=== PATIENT | male | born 1985 | race Caucasian/White ===

== ENCOUNTER 2016-10-22 12:11 | Emergency (ER) | payer OTHER ==
[2016-10-22 12:19] VITALS: BP 124/86; PULSE 60; TEMP 98; BMI 26.4
--- NOTE | 2016-10-22 12:27 | PDOC ---
Attending Attestation - Resident Resident Name: Martita Goodwin - ED Attending Attestation I have performed the following: I have examined & evaluated the patient, The case was reviewed & discussed with the resident, I agree w/resident's findings & plan, Exceptions are as noted - HPI HPI: 10/22/16 13:52 31y M hx of CP, developmnental delay, cateracts, glaucoma presents s/p witnessed fall this AM. Pt was walking around 6am and had a witnessed mechanical fall on his forehead and R knee. There was no reported LOC. Since the injury, the pt has been acting his usual self, he ate breakfast/lunch without a problem, theree was no vomiting nor change in his behavior. He presented originially to the urgent care but was referred to the ED for a head CT. - Physicial Exam PE: 10/22/16 14:07 GENERAL: The patient is awake, alert HEAD: Normocephalic, atraumatic without any focal bony [id number], erythema, stepoffs, bruising. neg battles sign, racoon eyes, TM without hemotympanum b/l. EYES: extraocular movements intact, sclera anicteric, conjunctiva clear.Aniscoric pupil on R eye (s/p cateract surgery), L pupil is 3mm and reactive to light NECK: Normal range of motion, supple, no focal bony tenderness on midline cervical/thoracic/lumbar spine LUNGS: Breath sounds equal, clear to auscultation bilaterally. No wheezes, no rhonchi, no rales. HEART: Regular rate and rhythm, normal S1 and Sop. ABDOMEN: Soft, nontender, normoactive bowel sounds. No guarding, no rebound. EXTREMITIES: Normal range of motion passively and activly of lower and upper extermities. Mild ertyeham with superficial skin scrap on R anterior knee NEUROLOGICAL:awake/alert, moving all 4 extremities spontaneously and symemtrically SKIN: Warm, Dry, normal turgor, - Medical Decision Making 10/22/16 14:09 As pt is approximately 8 hrs after injury and is at bsaeline status, without any vomiting will defer CT head as fall from standing to forehead is low risk otherwise. Discussed with care providers that if pts mental status changes at all, he is crying or otherwise not himself or vomiting he should return immediately for further evaluation.
--- NOTE | 2016-10-22 13:54 | PDOC ---
History of Present Illness <River Simms - Last Filed: 10/22/16 14:03> - General History Source: Care Provider - History of Present Illness Initial Comments: 31 year old male with cerebral palsy and seizure disorder presenting asymptomatic after a mechanical fall with head trauma 6 hours ago. Patient was walking at 6:00 AM on the morning of presentation with long pajamas and he tripped over them falling forward and bumping the front right portion of his head. His caregiver denied LOC, nausea, vomiting, unstable gait, lethargy, any complaints of pain, or change in routine. The patient is non-verbal at baseline but there was no abnormal behavior, the staff was simply concerned because of the fall itself. There was not bruising, bleeding, swelling, or concern for pain over the area of trauma. 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 He has been taking his seizure medications as prescribed and has not missed any doses. 10/22/16 14:12 <Martita Goodwin - Last Filed: 10/22/16 14:45> - General Chief Complaint: Injury Stated Complaint: slip and fall Time Seen by Provider: 10/22/16 12:15 Past History <River Simms - Last Filed: 10/22/16 14:03> - Past Medical History Seizures: Yes Other medical history: cataracts, glacoma, cerebral palsy, developmental delay - Psycho/Social/Smoking Cessation Hx Suicidal Ideation: No (unable to obtain) Smoking History: Never smoked Hx Alcohol Use: No Drug/Substance Use Hx: No Substance Use Type: None <Martita Goodwin - Last Filed: 10/22/16 14:45> - Past Medical History Allergies/Adverse Reactions: Allergies Allergy/AdvReac Type Severity Reaction Status Date / Time Sulfa (Sulfonamide Allergy Verified 10/22/16 12:24 Antibiotics) Home Medications: Ambulatory Orders Betaxolol HCl 0.25% [Betoptic S 0.25%] 1 drop OS BID 10/22/16 Carbamazepine [Tegretol -] 200 mg PO BID 10/22/16 Docusate Sodium [Colace -] 100 mg PO DAILY 10/22/16 Review of Systems - Review of Systems Able to Perform ROS?: No (Mentally Delayed) <Martita Goodwin - Last Filed: 10/22/16 14:45> *Physical Exam - Vital Signs Last Vital Signs Temp Pulse Resp BP Pulse Ox 98.0 F 60 16 124/86 99 10/22/16 12:12 10/22/16 12:12 10/22/16 12:12 10/22/16 12:12 10/22/16 12:12 <River Simms - Last Filed: 10/22/16 14:03> - Vital Signs Last Vital Signs Temp Pulse Resp BP Pulse Ox 98.0 F 60 16 124/86 99 10/22/16 12:12 10/22/16 12:12 10/22/16 12:12 10/22/16 12:12 10/22/16 12:12 - Physical Exam Comments: 10/22/16 14:32 Limited physical exam due to mental delay and subsequent non-compliance. General Appearance: Yes: Nourished, Appropriately Dressed. No: Apparent Distress HEENT: positive: EOMI, ZION, Normal ENT Inspection, TMs Normal Neck: positive: Trachea midline, Normal Thyroid, Supple. negative: Tender, Rigid Respiratory/Chest: positive: Lungs Clear, Normal Breath Sounds. negative: Chest Tender, Respiratory Distress, Accessory Muscle Use Cardiovascular: positive: Regular Rhythm, Regular Rate Gastrointestinal/Abdominal: positive: Normal Bowel Sounds, Flat, Soft. negative : Tender Neurologic: positive: Alert. negative: Fully Oriented <Martita Goodwin - Last Filed: 10/22/16 14:45> Medical Decision Making - Medical Decision Making 31 year old male with PMH of CP and seizure disorder presenting asymptomatic after a mechanical trip and fall with head trauma. No need to image his head because there is no concern for high mechanism of head trauma. No hemorrhage, swelling, or pain at the site of trauma and the patient is not motioning toward the area or wincing when the area is palpated. His behavior has been normal and the caregivers deny nausea, vomiting, or gait abnormality. The patient was monitored for one hour without decline in MS or change in behavior. Return precautions were given to the caregivers and he was discharged in stable condition. 10/22/16 14:32 <Martita Goodwin - Last Filed: 10/22/16 14:45> *DC/Admit/Observation/Transfer - Discharge Dispostion Admit: No <River Simms - Last Filed: 10/22/16 14:03> - Discharge Dispostion Admit: No - Attestations Physician Attestion: 10/22/16 14:45 I, Dr. Martita Goodwin, attest that this document has been prepared under my direction and personally reviewed by me in its entirety. I further attest, that it accurately reflects all work, treatment, procedures and medical decision -making performed by me. <Martita Goodwin - Last Filed: 10/22/16 14:45> Diagnosis at time of Disposition: Head injury Qualifiers: Encounter type: initial encounter Qualified Code(s): S09.90XA - Unspecified injury of head, initial encounter - Discharge Dispostion Disposition: HOME Condition at time of disposition: Stable - Patient Instructions Printed Discharge Instructions: DI for Closed Head Injury Additional Instructions: Please keep an eye on Chun If Chun appears to be in pain, is vomiting or nauseus, or otherwise is not cting like his usual self, return to the emergency department for further evaluation. Print Language: GREEK
== END 2016-10-22 14:12 | disposition home or self-care (01) ==
LOC: FER 12:11
DX: S09.90XA Unspecified injury of head, initial encounter (principal); W18.09XA Striking against other object with subsequent fall, initial encounter; Y93.89 Activity, other specified; Y92.009 Unspecified place in unspecified non-institutional (private) residence as the place of occurrence of the external cause; G80.9 Cerebral palsy, unspecified; G40.909 Epilepsy, unspecified, not intractable, without status epilepticus
CPT/HCPCS: 99281-25

== ENCOUNTER 2017-06-06 10:45 | Emergency (ER) | payer BC, OTHER ==
--- NOTE | 2017-06-06 10:54 | PDOC ---
History of Present Illness - General Chief Complaint: Respiratory Stated Complaint: COUGH & COLD SX Time Seen by Provider: 06/06/17 10:47 - History of Present Illness Initial Comments: 06/06/17 10:53 32 M with CP presenting with 1 day of fever, cough, runny nose. Pt's aide states that he started having fevers last night, Tmax 101.4. Pt has been sneezing. Aides state that several other residents at his home have tested positive for flu and strep. Past History - Past Medical History Allergies/Adverse Reactions: Allergies Allergy/AdvReac Type Severity Reaction Status Date / Time Sulfa (Sulfonamide Allergy Verified 06/06/17 10:46 Antibiotics) Home Medications: Ambulatory Orders Acetaminophen [Tylenol] 650 mg PO Q6H PRN 06/06/17 Betaxolol HCl 0.25% [Betoptic S 0.25%] 1 drop OS BID 06/06/17 Carbamazepine [Carbamazepine ER] 200 mg PO BID 06/06/17 Cholecalciferol (Vitamin D3) [Vitamin D3] 1,000 unit PO DAILY 06/06/17 Clotrimazole/Betamet Diprop [Lotrisone Cream (Large Tube) -] 1 applic TP BID Cranberry Fruit Extract [Cranberry] 250 mg PO DAILY 06/06/17 Docusate Sodium [Colace] 100 mg PO HS 06/06/17 Erythromycin Base/Ethanol [Erythromycin 2% Gel] 1 applic TP HS 06/06/17 Oseltamivir Phosphate [Tamiflu Oral Suspension -] 75 mg PO BID 10 Days #500 ml 06/06/17 Zinc Oxide [Desitin] 1 applic TP QID 06/06/17 Seizures: Yes - Suicide/Smoking/Psychosocial Hx Smoking History: Never smoked Hx Alcohol Use: No Drug/Substance Use Hx: No Substance Use Type: None Review of Systems - Review of Systems Able to Perform ROS?: No *Physical Exam - Physical Exam Comments: 06/06/17 12:34 "GENERAL: Awake, alert, in no acute distress HEAD: No signs of trauma EYES: PERRLA, EOMI, sclera anicteric, conjunctiva clear ENT: Auricles normal inspection, hearing grossly normal, nares patent, oropharynx clear without exudates. Moist mucosa NECK: Nontender, no stepoffs, Normal ROM, supple, no lymphadenopathy, JVD, or masses LUNGS: Breath sounds equal, clear to auscultation bilaterally. No wheezes, and no crackles HEART: Regular rate and rhythm, normal S1 and S2, no murmurs, rubs or gallops ABDOMEN: Soft, nontender, normoactive bowel sounds. No guarding, no rebound. No masses EXTREMITIES: Normal range of motion, no edema. No clubbing or cyanosis. No cords, erythema, or tenderness NEUROLOGICAL: Cranial nerves II through XII intact. 5/5 strength and sensation in all extremities, Normal speech, normal gait, normal cerebellar function SKIN: Warm, Dry, normal turgor, no rashes or lesions noted. " Medical Decision Making - Medical Decision Making 06/06/17 12:34 32 M with fever x 1 day. Multiple contacts with flu and strep at alf. Vitals stable, lungs clear. - CXR - Flu swab - Rapid strep 06/06/17 12:37 CXR clear without infiltrate Rapid strep negative Flu swab + for influenza B Pt started on tamiflu Pt is well appearing, with normal vitals. Clinically stable for DC at this time. I discussed the physical exam findings, ancillary test results and final diagnoses with the patient. I answered all of the patient's questions. The patient was satisfied with the care received and felt comfortable with the discharge plan and treatment plan. The patient agrees to follow up with the primary care physician within 24-72 hours. *DC/Admit/Observation/Transfer Diagnosis at time of Disposition: Influenza B - Discharge Dispostion Disposition: HOME Condition at time of disposition: Stable - Prescriptions Prescriptions: Oseltamivir Phosphate [Tamiflu Oral Suspension -] 75 mg PO BID 10 Days #500 ml - Referrals - Patient Instructions Printed Discharge Instructions: DI for Influenza -- Adult Additional Instructions: You have the flu. Take the tamiflu as prescribed to shorten the duration of your symptoms. If you experience worsening fevers, chest pain, shortness of breath, or any other concerning symptoms, return to the ER immediately. Otherwise, follow up with your primary doctor within 1 week. - Post Discharge Activity - Attestations Physician Attestion: 06/06/17 12:36 I, Dr. Octavio Motta MD, attest that this document has been prepared under my direction and personally reviewed by me in its entirety. I further attest, that it accurately reflects all work, treatment, procedures and medical decision -making performed by me.
[2017-06-06 11:00] VITALS: BP 112/73; PULSE 79; TEMP 99
[2017-06-06] MEDS: ACETAMINOPHEN 650 MG/20.3 ML ORAL SOLUTION (CUPS) PO ONE ×2 (11:00→11:34)
[2017-06-06] MEDS ORDERED: ACETAMINOPHEN 650 MG/20.3 ML ORAL SOLUTION (CUPS) ONE (11:03)
[2017-06-06] MEDS ORDERED: OSELTAMIVIR PHOSPHATE 6 MG/1 ML PO ONE (12:31)
[2017-06-06] MEDS ORDERED: OSELTAMIVIR PHOSPHATE 75 MG CAPSULE ONE (12:43)
[2017-06-06] MEDS ORDERED: OSELTAMIVIR PHOSPHATE 75 MG CAPSULE PO ONE (12:48)
== END 2017-06-06 12:56 | disposition home or self-care (01) ==
LOC: FER 10:45
DX: J10.1 Influenza due to other identified influenza virus with other respiratory manifestations (principal); Z88.2 Allergy status to sulfonamides
CPT/HCPCS: 71046-TC-FY; 87070; 87430; 87804; 99282-25; G9019

== ENCOUNTER 2017-08-04 19:31 | Emergency (ER) | payer BC, OTHER ==
[2017-08-04 19:38] VITALS: BP 121/72; PULSE 100; TEMP 98.4; BMI 25.0
--- NOTE | 2017-08-04 21:37 | PDOC ---
History of Present Illness - General History Source: Patient Exam Limitations: Other (nonverbal) - History of Present Illness Initial Comments: 08/04/17 21:50 The patient is a 32 year old male with past medical history of cerebral palsy, cognitive deficits, cataracts, blindness who arrives to the ED from a [facility] for evaluation of fever. The patients aide states that on Friday the patient was thought to have a fever and has been persistent since, noted to be in the 100s. The aide denies any cough, shortness of breath, foul smelling urine, hematuria, nausea, vomiting, or diarrhea. Allergies: Sulfa <Isis Singh - Last Filed: 08/04/17 23:56> <Tomasa Ochoa - Last Filed: 08/05/17 01:12> - General Chief Complaint: Urinary Problem Stated Complaint: URINARY PROBLEM Time Seen by Provider: 08/04/17 21:22 Past History <Isis Singh - Last Filed: 08/04/17 23:56> - Past Medical History COPD: No Seizures: Yes - Suicide/Smoking/Psychosocial Hx Smoking History: Never smoked Have you smoked in the past 12 months: No Information on smoking cessation initiated: No Hx Alcohol Use: No Drug/Substance Use Hx: No Substance Use Type: None <Tomasa Ochoa - Last Filed: 08/05/17 01:12> - Past Medical History Allergies/Adverse Reactions: Allergies Allergy/AdvReac Type Severity Reaction Status Date / Time Sulfa (Sulfonamide Allergy Verified 08/04/17 19:38 Antibiotics) Home Medications: Ambulatory Orders Acetaminophen [Tylenol] 650 mg PO Q6H PRN 06/06/17 Betaxolol HCl 0.25% [Betoptic S 0.25%] 1 drop OS BID 06/06/17 Carbamazepine [Carbamazepine ER] 200 mg PO BID 06/06/17 Cholecalciferol (Vitamin D3) [Vitamin D3] 1,000 unit PO DAILY 06/06/17 Clotrimazole/Betamet Diprop [Lotrisone Cream (Large Tube) -] 1 applic TP BID Cranberry Fruit Extract [Cranberry] 250 mg PO DAILY 06/06/17 Docusate Sodium [Colace] 100 mg PO HS 06/06/17 Erythromycin Base/Ethanol [Erythromycin 2% Gel] 1 applic TP HS 06/06/17 Oseltamivir Phosphate [Tamiflu -] 75 mg PO BID #20 capsule 06/06/17 Oseltamivir Phosphate [Tamiflu Oral Suspension -] 75 mg PO BID 10 Days #500 ml 06/06/17 Zinc Oxide [Desitin] 1 applic TP QID 06/06/17 levoFLOXacin [Levaquin -] 500 mg PO DAILY #7 tablet 08/05/17 Review of Systems - Review of Systems Able to Perform ROS?: No (nonverbal ) <Isis Singh - Last Filed: 08/04/17 23:56> *Physical Exam - Vital Signs Last Vital Signs Temp Pulse Resp BP Pulse Ox 98.4 F 100 H 16 121/72 100 08/04/17 19:36 08/04/17 19:36 08/04/17 19:36 08/04/17 19:36 08/04/17 19:36 - Physical Exam Comments: 08/04/17 21:51 GENERAL: Well developed, well nourished. Awake. Able to follow commands. Understands simple directions. Wheelchair bound. No acute distress. HEENT: Normocephalic, atraumatic. PERRLA, EOMI. No conjunctival pallor. Sclera are non- icteric. Moist mucous membranes. Oropharynx is clear. NECK: Supple. Full ROM. No JVD. Carotid pulses 2+ and symmetric, without bruits. No thyromegaly. No lymphadenopathy. CARDIOVASCULAR: Regular rate and rhythm. No murmurs, rubs, or gallops. Distal pulses are 2+ and symmetric. PULMONARY: No evidence of respiratory distress. Lungs clear to auscultation bilaterally. No wheezing, rales or rhonchi. ABDOMINAL: Soft. Non-tender. Non-distended. No rebound or guarding. No organomegaly. Normoactive bowel sounds. MUSCULOSKELETAL Normal range of motion at all joints. No bony deformities or tenderness. No CVA tenderness. EXTREMITIES: No cyanosis. No clubbing. No edema. No calf tenderness. SKIN: Warm and dry. Normal capillary refill. No rashes. No jaundice. NEUROLOGICAL: Alert, awake, appropriate. Cranial nerves 2-12 intact. No motor deficits in the in face, upper extremities and lower extremities. PSYCHIATRIC: Cooperative. Good eye contact. Appropriate mood and affect. <Isis Singh - Last Filed: 08/04/17 23:56> - Vital Signs Last Vital Signs Temp Pulse Resp BP Pulse Ox 98.4 F 100 H 16 121/72 100 08/04/17 19:36 08/04/17 19:36 08/04/17 19:36 08/04/17 19:36 08/04/17 19:36 <Tomasa Ochoa - Last Filed: 08/05/17 01:12> ED Treatment Course - LABORATORY CBC & Chemistry Diagram: 08/04/17 23:30 08/04/17 23:30 <Isis Singh - Last Filed: 08/04/17 23:56> - LABORATORY CBC & Chemistry Diagram: 08/04/17 23:30 08/04/17 23:30 <Tomasa Ochoa - Last Filed: 08/05/17 01:12> Medical Decision Making - Medical Decision Making 08/04/17 23:57 Phone call placed to Anita Victoria RN , one of the care takers of Chun Goodman at the [facility]. It was discussed that patient has a UTI and will be discharged with antibiotics sent to [facility] pharmacy. <Isis Singh - Last Filed: 08/04/17 23:56> - Medical Decision Making 08/04/17 23:59 Patient's rectal temp was 100.5. Patient CBC is within normal limits with a white count of 7.4 and there is no shift with a normal differential. UA shows large # WBCs , Culture was sent Plan I will give her 1 dose of Levaquin and then a prescription will be sent to [facility] <Tomasa Ochoa - Last Filed: 08/05/17 01:12> *DC/Admit/Observation/Transfer - Attestations Scribe Attestion: 08/04/17 21:53 Documentation prepared by Isis Singh, acting as registered medical assistant for Tomasa Ochoa MD. <Isis Singh - Last Filed: 08/04/17 23:56> <Tomasa Ochoa - Last Filed: 08/05/17 01:12> Diagnosis at time of Disposition: Urinary tract infection Qualifiers: Urinary tract infection type: site unspecified Hematuria presence: without hematuria Qualified Code(s): N39.0 - Urinary tract infection, site not specified - Discharge Dispostion Disposition: HOME Condition at time of disposition: Stable - Prescriptions Prescriptions: levoFLOXacin [Levaquin -] 500 mg PO DAILY #7 tablet - Patient Instructions Printed Discharge Instructions: DI for Urinary Tract Infection (UTI) Additional Instructions: please take the antibiotics daily for your urinary tract infection follow up with your physician return for any worsening symptoms
[2017-08-04 23:41] LABS: BASO % 0.5 % (0-2.0); EOS % 0.7 % (0-4.5); HEMATOCRIT 46.3 % (35.4-49); HEMOGLOBIN 15.4 GM/dL (11.7-16.9); LYMPH % 12.4 % (8-40); MCH 30.7 pg (25.7-33.7); MCHC 33.2 g/dl (32.0-35.9); MEAN CELL VOLUME 92.5 fl (80-96); MEAN PLT VOLUME 8.7 fl (7.5-11.1); MONO % 15.2 % (3.8-10.2); NEUT % 71.2 % (42.8-82.8); PLATELET COUNT 153 K/MM3 (134-434); RDW 13.1 % (11.9-15.9); WHITE BLOOD COUNT 7.4 K/mm3 (4.0-10.0)
[2017-08-04 23:45] LABS: URINE APPEARANCE CLOUDY; URINE BILIRUBIN NEGATIVE (<2.0 mg/dL); URINE COLOR YELLOW; URINE GLUCOSE (UA) NEGATIVE (NEGATIVE); URINE KETONE NEGATIVE (NEGATIVE); URINE LEUK ESTERASE 3+ (NEGATIVE); URINE NITRITE NEGATIVE (NEGATIVE); URINE PROTEIN NEGATIVE (NEGATIVE); URINE UROBILINOGEN NEGATIVE mg/dL (0.2-1.0)
[2017-08-04 23:48] LABS: URINE BACTERIA RARE /hpf (NONE SEEN); URINE HYALINE CAST 2 /lpf; URINE MUCUS RARE
[2017-08-05 00:05] LABS: ALBUMIN 3.1 g/dl (3.4-5.0); ALK PHOS 110 U/L (45-117); ANION GAP 8 (8-16); BILIRUBIN,TOTAL 0.3 mg/dL (0.2-1.0); BLOOD UREA NITROGEN 15 mg/dL (7-18); CALCIUM 8.7 mg/dL (8.5-10.1); CHLORIDE 101 mmol/L (98-107); CO2 31 mmol/L (21-32); CREATININE 0.9 mg/dL (0.7-1.3); GLUCOSE,RANDOM 92 mg/dL (74-106); POTASSIUM 3.8 mmol/L (3.5-5.1); SGOT/AST 48 U/L (15-37); SGPT/ALT 56 U/L (12-78); SODIUM 140 mmol/L (136-145); TOT PROT 6.6 g/dl (6.4-8.2)
[2017-08-05] MEDS ORDERED: ACETAMINOPHEN 325 MG TABLET (FP) ONE (00:17)
[2017-08-05] MEDS ORDERED: ACETAMINOPHEN 325 MG TABLET (FP) PO ONE (00:20)
--- NOTE | 2017-08-07 08:47 | PDOC ---
Patient Follow-up (Call Back) - Post ED Follow - Up Condition at time of discharge: Stable Disposition at time of original discharge: HOME Reason for Call Back: Abnwl. Microbiology (urine culture preliminary shows lactose fermenting GNB. Patient on Levaquin. Will await final report.)
== END 2017-08-05 01:25 | disposition home or self-care (01) ==
LOC: JER 19:31
DX: N39.0 Urinary tract infection, site not specified (principal); G80.9 Cerebral palsy, unspecified; R41.89 Other symptoms and signs involving cognitive functions and awareness; H54.7 Unspecified visual loss
CPT/HCPCS: 36415; 80053; 81003; 81015; 85025; 87086; 87186; 99281-25

== ENCOUNTER 2021-05-31 20:38 | Inpatient (IN) | payer BC, OTHER ==
[2021-05-31 21:02] VITALS: BMI 25.4
[2021-05-31] MEDS ORDERED: SODIUM CHLORIDE 1,891 ML IV ONE (21:44)
[2021-05-31 22:39] LABS: VENOUS BASE EXCESS -0.6 mmol/L (-2-2); VENOUS O2 SATURATION 54.2 % (70-80); VENOUS PCO2 46.6 mmHg (38-52); VENOUS PH 7.355 (7.310-7.410)
[2021-05-31 22:40] LABS: HEMATOCRIT 48.7 % (35.4-49); HEMOGLOBIN 16.6 GM/dL (11.7-16.9); MCH 31.4 pg (25.7-33.7); MCHC 34.1 g/dl (32.0-35.9); MEAN CELL VOLUME 92.1 fl (80-96); MEAN PLT VOLUME 7.8 fl (7.5-11.1); PLATELET COUNT 169 10^3/uL (134-434); RBC 5.29 M/mm3 (4.00-5.60); RDW 12.8 % (11.9-15.9)
[2021-05-31 22:46] LABS: EPI CELLS 10 /uL (0-25.1); HYALINE CASTS 1 /uL (0-3.1); URINE APPEARANCE CLOUDY; URINE BACTERIA >9,000 /uL (0-1359); URINE BILIRUBIN NEGATIVE (NEGATIVE); URINE COLOR YELLOW; URINE GLUCOSE (UA) TRACE (NEGATIVE); URINE KETONE NEGATIVE (NEGATIVE); URINE LEUK ESTERASE 3+ (NEGATIVE); URINE NITRITE NEGATIVE (NEGATIVE); URINE PROTEIN NEGATIVE (NEGATIVE); URINE RBC 37 /uL (0-23.9); URINE WBC 1778 /uL (0-25.8)
[2021-05-31 22:48] LABS: INR 1.12 (0.83-1.09); PROTHROMBIN TIME (PATIENT) 12.9 SEC (9.7-13.0)
[2021-05-31 22:51] LABS: ACTIVATED PTT 28.2 SECONDS (25.2-36.5)
[2021-05-31 23:01] LABS: CHLORIDE 105 mmol/L (98-107); SODIUM 139 mmol/L (136-145)
[2021-05-31 23:04] LABS: ALBUMIN 3.6 g/dl (3.4-5.0); ANION GAP 7 MMOL/L (8-16); CO2 27 mmol/L (21-32); GLUCOSE,RANDOM 101 mg/dL (74-106)
[2021-05-31 23:07] LABS: CREATININE 0.9 mg/dL (0.55-1.3); SGOT/AST 40 U/L (15-37); SGPT/ALT 44 U/L (13-61)
[2021-05-31 23:08] LABS: TOT PROT 6.8 g/dl (6.4-8.2)
[2021-05-31 23:09] LABS: BILIRUBIN,TOTAL 0.6 mg/dL (0.2-1)
[2021-05-31 23:10] LABS: ALK PHOS 113 U/L (45-117)
[2021-05-31 23:28] LABS: ANISOCYTOSIS 0; MACROCYTOSIS 0
[2021-05-31] MEDS ORDERED: CEFTRIAXONE 1,000 MG in DEXTROSE 5%-WATER - 50 ML IVPB ONE (23:50)
[2021-05-31] MEDS ORDERED: ACETAMINOPHEN 1000 MG/100 ML BAG IVPB ONE (23:50)
[2021-06-01] MEDS ORDERED: ACETAMINOPHEN INJECTION 100 ML IVPB ONE (00:22)
[2021-06-01] MEDS ORDERED: CEFTRIAXONE 1 GM/50 ML BAG ONE (00:23)
[2021-06-01] MEDS ORDERED: PIPERACILLIN/TAZOB 2.25 GM 2.25 GM in DEXTROSE 5%-WATER - 50 ML IVPB SCH (04:00)
[2021-06-01] MEDS ORDERED: PIPERACILLIN/TAZOB 3.375 GM 3.375 GM in DEXTROSE 5%-WATER - 50 ML IVPB SCH ×3 (04:00→10:00)
[2021-06-01] MEDS ORDERED: PIPERACILLIN/TAZOB 3.375 GM 3.375 GM/50 ML BAG IVPB ONE (06:01)
[2021-06-01 06:22] LABS: CALCIUM 8.6 mg/dL (8.5-10.1)
[2021-06-01 06:23] LABS: ALBUMIN 3.2 g/dl (3.4-5.0); BLOOD UREA NITROGEN 9.8 mg/dL (7-18); MAGNESIUM 1.8 mg/dL (1.8-2.4)
[2021-06-01 06:26] LABS: CREATININE 0.9 mg/dL (0.55-1.3); PHOSPHOROUS 3.2 mg/dL (2.5-4.9)
[2021-06-01 06:27] LABS: BILIRUBIN,TOTAL 0.8 mg/dL (0.2-1)
[2021-06-01 06:28] LABS: BASO % 0.2 % (0-2.0); HEMATOCRIT 47.4 % (35.4-49); HEMOGLOBIN 16.1 GM/dL (11.7-16.9); MCH 31.3 pg (25.7-33.7); MCHC 33.9 g/dl (32.0-35.9); MEAN CELL VOLUME 92.4 fl (80-96); MEAN PLT VOLUME 8.7 fl (7.5-11.1); MONO % 10.2 % (3.8-10.2); NEUT % 82.6 % (42.8-82.8); PLATELET COUNT 159 10^3/uL (134-434); RBC 5.14 M/mm3 (4.00-5.60); RDW 12.9 % (11.9-15.9); TOT PROT 6.1 g/dl (6.4-8.2); WHITE BLOOD COUNT 20.1 K/mm3 (4.0-10.0)
[2021-06-01] MEDS: SODIUM CHLORIDE 0.45% 1,000 ML IV SCH (06:37)
[2021-06-01] MEDS ORDERED: ENOXAPARIN NA (PORCINE) 40 MG/0.4 ML DISP.SYRIN SQ ONE (09:23)
[2021-06-01] MEDS: ENOXAPARIN NA (PORCINE) 40 MG/0.4 ML DISP.SYRIN SQ SCH (09:30)
[2021-06-01] MEDS ORDERED: PATIENT'S OWN MEDICATION (NON-FORMULARY) (Cranberry Fruit Extract [Cranberry] 250 MG Capsu PO SCH (10:30)
[2021-06-01] MEDS ORDERED: carBAMazepine 200 MG TABLET ONE (10:39)
[2021-06-01 10:44] LABS: ANISOCYTOSIS 2+; MACROCYTOSIS 0; TEAR DROP CELLS 2+
[2021-06-01] MEDS: carBAMazepine XR 200 MG TAB.ER.12H PO SCH ×2 (10:44→23:01)
[2021-06-01] MEDS ORDERED: cefTRIAXone SODIUM 1 GM VIAL ONE (11:21)
[2021-06-01] MEDS ORDERED: DEXTROSE 5%-WATER - 50 ML IVPB ONE ×2 (11:22→21:33)
[2021-06-01] MEDS ORDERED: CEFTRIAXONE 1 GM in DEXTROSE 5%-WATER - 50 ML IVPB SCH (12:00)
[2021-06-01] MEDS: BETAXOLOL HCL 0.25% OPHTHALMIC 10 ML DROPSBTL OS SCH ×4 (13:36→21:44)
[2021-06-01] MEDS: BACLOFEN 10 MG TABLET (FP) PO SCH ×2 (13:37→21:36)
[2021-06-01] MEDS ORDERED: ACETAMINOPHEN 1000 MG/100 ML BAG IVPB PRN (13:56)
[2021-06-01] MEDS ORDERED: PIPERACILLIN/TAZOBACTAM 3.375 GM VIAL IVPB ONE (21:32)
[2021-06-01] MEDS: PIPERACILLIN/TAZOB 3.375 GM 3.375 GM in DEXTROSE 5%-WATER - 50 ML IVPB SCH (21:36)
[2021-06-01] MEDS: DOCUSATE SODIUM 100 MG CAPSULE (FP) PO SCH (21:36)
[2021-06-02] MEDS ORDERED: PIPERACILLIN/TAZOBACTAM 3.375 GM VIAL IVPB ONE ×3 (03:09→16:53)
[2021-06-02] MEDS ORDERED: DEXTROSE 5%-WATER - 50 ML IVPB ONE ×3 (03:09→16:54)
[2021-06-02] MEDS: PIPERACILLIN/TAZOB 3.375 GM 3.375 GM in DEXTROSE 5%-WATER - 50 ML IVPB SCH ×3 (03:12→17:32)
[2021-06-02] MEDS: BACLOFEN 10 MG TABLET (FP) PO SCH ×3 (05:29→21:39)
[2021-06-02 07:44] LABS: BASO % 0.4 % (0-2.0); EOS % 0.5 % (0-4.5); HEMATOCRIT 44.4 % (35.4-49); HEMOGLOBIN 15.1 GM/dL (11.7-16.9); LYMPH % 7.9 % (8-40); MCH 31.6 pg (25.7-33.7); MCHC 33.9 g/dl (32.0-35.9); MEAN CELL VOLUME 93.1 fl (80-96); MEAN PLT VOLUME 8.1 fl (7.5-11.1); MONO % 12.9 % (3.8-10.2); NEUT % 78.3 % (42.8-82.8); PLATELET COUNT 156 10^3/uL (134-434); RBC 4.77 M/mm3 (4.00-5.60); RDW 13.2 % (11.9-15.9); WHITE BLOOD COUNT 15.3 K/mm3 (4.0-10.0)
[2021-06-02 07:59] LABS: CALCIUM 8.8 mg/dL (8.5-10.1)
[2021-06-02 08:00] LABS: BLOOD UREA NITROGEN 11.5 mg/dL (7-18)
[2021-06-02 08:03] LABS: CREATININE 0.9 mg/dL (0.55-1.3)
[2021-06-02] MEDS: ENOXAPARIN NA (PORCINE) 40 MG/0.4 ML DISP.SYRIN SQ SCH (10:57)
[2021-06-02] MEDS: carBAMazepine XR 200 MG TAB.ER.12H PO SCH ×2 (10:57→21:39)
[2021-06-02] MEDS: BETAXOLOL HCL 0.25% OPHTHALMIC 10 ML DROPSBTL OS SCH ×2 (10:58→21:42)
[2021-06-02] MEDS: SODIUM CHLORIDE 0.45% 1,000 ML IV SCH (11:28)
[2021-06-02] MEDS: ACETAMINOPHEN 1000 MG/100 ML BAG IVPB PRN (14:24)
[2021-06-02] MEDS: DOCUSATE SODIUM 100 MG CAPSULE (FP) PO SCH (21:39)
[2021-06-03] MEDS ORDERED: DEXTROSE 5%-WATER - 50 ML IVPB ONE ×2 (00:27→09:33)
[2021-06-03] MEDS ORDERED: cefTRIAXone SODIUM 1 GM VIAL ONE ×2 (00:27→09:32)
[2021-06-03] MEDS: CEFTRIAXONE 1 GM in DEXTROSE 5%-WATER - 50 ML IVPB SCH ×2 (00:30→09:49)
[2021-06-03] MEDS: BACLOFEN 10 MG TABLET (FP) PO SCH ×3 (05:39→21:45)
[2021-06-03 08:36] LABS: HEMATOCRIT 45.5 % (35.4-49); HEMOGLOBIN 15.2 GM/dL (11.7-16.9); MCH 31.2 pg (25.7-33.7); MCHC 33.4 g/dl (32.0-35.9); MEAN CELL VOLUME 93.5 fl (80-96); MEAN PLT VOLUME 8.6 fl (7.5-11.1); PLATELET COUNT 141 10^3/uL (134-434); RBC 4.87 M/mm3 (4.00-5.60); RDW 13.1 % (11.9-15.9); WHITE BLOOD COUNT 6.4 K/mm3 (4.0-10.0)
[2021-06-03 09:09] LABS: CALCIUM 8.3 mg/dL (8.5-10.1)
[2021-06-03 09:10] LABS: BLOOD UREA NITROGEN 11.6 mg/dL (7-18)
[2021-06-03 09:13] LABS: CREATININE 0.9 mg/dL (0.55-1.3)
[2021-06-03] MEDS: ENOXAPARIN NA (PORCINE) 40 MG/0.4 ML DISP.SYRIN SQ SCH (09:49)
[2021-06-03] MEDS: carBAMazepine XR 200 MG TAB.ER.12H PO SCH ×2 (09:58→21:47)
[2021-06-03] MEDS: BETAXOLOL HCL 0.25% OPHTHALMIC 10 ML DROPSBTL OS SCH ×2 (09:59→21:45)
[2021-06-03 10:48] LABS: ANISOCYTOSIS 0; MACROCYTOSIS 0
[2021-06-03] MEDS: ACETAMINOPHEN 1000 MG/100 ML BAG IVPB PRN (10:59)
[2021-06-03] MEDS: SODIUM CHLORIDE 0.45% 1,000 ML IV SCH (11:19)
[2021-06-03] MEDS: DOCUSATE SODIUM 100 MG CAPSULE (FP) PO SCH (21:45)
[2021-06-04] MEDS: BACLOFEN 10 MG TABLET (FP) PO SCH (05:20)
[2021-06-04 05:47] VITALS: BP 116/70; PULSE 81; TEMP 98.6
[2021-06-04 08:32] LABS: HEMATOCRIT 44.4 % (35.4-49); HEMOGLOBIN 15.2 GM/dL (11.7-16.9); MCH 31.5 pg (25.7-33.7); MCHC 34.2 g/dl (32.0-35.9); MEAN PLT VOLUME 8.2 fl (7.5-11.1); PLATELET COUNT 154 10^3/uL (134-434); RBC 4.82 M/mm3 (4.00-5.60); WHITE BLOOD COUNT 4.1 K/mm3 (4.0-10.0)
[2021-06-04 09:09] LABS: CALCIUM 8.4 mg/dL (8.5-10.1)
[2021-06-04 09:10] LABS: BLOOD UREA NITROGEN 11.9 mg/dL (7-18)
[2021-06-04] MEDS ORDERED: DEXTROSE 5%-WATER - 50 ML IVPB ONE (09:11)
[2021-06-04] MEDS ORDERED: cefTRIAXone SODIUM 1 GM VIAL ONE (09:11)
[2021-06-04 09:13] LABS: CREATININE 0.8 mg/dL (0.55-1.3)
[2021-06-04] MEDS: CEFTRIAXONE 1 GM in DEXTROSE 5%-WATER - 50 ML IVPB SCH (09:31)
[2021-06-04] MEDS: ENOXAPARIN NA (PORCINE) 40 MG/0.4 ML DISP.SYRIN SQ SCH (09:32)
[2021-06-04] MEDS: carBAMazepine XR 200 MG TAB.ER.12H PO SCH (09:32)
[2021-06-04] MEDS: BETAXOLOL HCL 0.25% OPHTHALMIC 10 ML DROPSBTL OS SCH (09:33)
[2021-06-04 09:56] LABS: ANISOCYTOSIS 0; HELMET CELLS 0; HOWELL-JOLLY BODIES 0; MACROCYTOSIS 0; OVALOCYTE 0; ROULEAU 0; SICKELED CELLS 0; TARGET CELLS 0; TEAR DROP CELLS 0; TOXIC GRANULATION 0
== END 2021-06-04 13:28 | disposition home or self-care (01) | DRG 871 ==
LOC: JER 20:38 → JERBED 23:52 → J7W 06-01 11:13
PROVIDERS: ADMIT Internal Medicine; ATTEND Internal Medicine
DX: A41.89 Other specified sepsis (principal); G93.41 Metabolic encephalopathy; N39.0 Urinary tract infection, site not specified; B96.20 Unspecified Escherichia coli [E. coli] as the cause of diseases classified elsewhere; G40.909 Epilepsy, unspecified, not intractable, without status epilepticus; G80.9 Cerebral palsy, unspecified; R53.83 Other fatigue; R32 Unspecified urinary incontinence; H54.7 Unspecified visual loss; R00.0 Tachycardia, unspecified; D72.829 Elevated white blood cell count, unspecified
CPT/HCPCS: 36415; 71045-TC-FY; 80048; 80053; 81003; 82553; 82803; 83036; 83735; 84100; 85025; 85610; 85730; 86850; 86900; 86901; 87040; 87086; 87186; 93005; 93010; 97116-GP; 99285-25; C9803-CS; J0475; U0003; U0005